=== PATIENT | female | born 1955 | race Caucasian/White ===

== ENCOUNTER → 2021-01-20 09:12 | Outpatient (BNVA) | payer OTHER, SELFPAY | PROVIDERS: Visit Provider Physician Assistant Medical | DX: M54.31 Sciatica, right side (principal) | CPT/HCPCS: 99203 ==

== ENCOUNTER → 2021-01-27 09:02 | Outpatient (BNVA) | payer OTHER, SELFPAY | PROVIDERS: Visit Provider Physician Assistant | DX: M54.31 Sciatica, right side (principal) | CPT/HCPCS: 99213 ==